=== PATIENT | female | born 1940 | race Caucasian/White ===

== ENCOUNTER → 2017-01-17 16:24 | Outpatient (CLI) | payer MEDICARE | END | disposition home or self-care (01) | LOC: D.MAMMO 13:15 | DX: Z12.31 Encounter for screening mammogram for malignant neoplasm of breast (principal) ==

== ENCOUNTER → 2017-07-09 11:42 | Outpatient (CLI) | payer MEDICARE | END | disposition home or self-care (01) | LOC: D.CT 11:30 | DX: K76.89 Other specified diseases of liver (principal) ==

== ENCOUNTER → 2018-02-01 22:00 | Outpatient (CLI) | payer MEDICARE | END | disposition home or self-care (01) | LOC: D.MAMMO 15:45 | DX: Z12.31 Encounter for screening mammogram for malignant neoplasm of breast (principal) ==

== ENCOUNTER → 2018-05-07 12:27 | Outpatient (CLI) | payer MEDICARE | END | disposition home or self-care (01) | LOC: D.MRI 12:27 | DX: M79.604 Pain in right leg (principal) ==

== ENCOUNTER 2018-09-06 06:20 | Day surgery (SDC) | payer MEDICARE ==
[2018-09-05 11:37] LABS: HEMATOCRIT 37.1 % (36.0-48.0); HEMOGLOBIN 12.4 g/dL (12-16); MCH 30.5 pg (26.0-34.0); MCHC 33.4 g/dL (31.0-37.0); MCV 91.4 fL (80.0-100.0); MEAN PLATELET VOLUME 11.2 fL (7.4-10.4); RBC 4.06 10x6/uL (4.00-5.40); RDW 13.5 % (11.5-14.5); WBC 4.4 10x3/uL (4.8-10.8)
[~2018-09-06] VITALS: Ht 152.4 cm; Wt 54.4 kg
--- NOTE | ~2018-09-06 | OP ---
PATIENT NAME: MICHELL DONOVAN MEDICAL RECORD: [id number] :38 LOCATION:[facility] ADMISSION DATE: SURGEON: DEVYN GROSSMAN DO DATE OF OPERATION: 09/06/2018 PROCEDURE PERFORMED: Left middle finger trigger finger release. PREOPERATIVE DIAGNOSIS: Left middle finger trigger finger. POSTOPERATIVE DIAGNOSIS: Left middle finger trigger finger. INDICATIONS: Ms. Donovan is a 78-year-old female, who presented to my office a month ago complaining of triggering of her left middle finger. She did not have any problem until she hit her forearm and then her finger started triggering. She tried boston taping it to keep it extended without catching. We tried an injection, which did not help she said and I told her that if the injection did not help, we could try another one or release it. She wanted to have it released. She is tired of dealing with the pain and having to boston tape it to the next finger. She did have some palm swelling as well. I informed her of the risks and benefits including damage to the nerves and vessels that were in the area. She was a high risk due to her EKG and she is following up with Dr. Mahoney, roads and parking lots sweeper operator and she was done under local. SURGEON: Devyn Grossman DO DESCRIPTION OF PROCEDURE: I gave her a block with 0.5% Marcaine with epinephrine in the preoperative area over the middle finger flexor tendon sheath and then she was taken to the operative suite, laid in supine position, given some fentanyl by anesthesia. She was given a gram of vancomycin due to her cephalosporin allergy and a time-out was performed. Everyone was in agreement with correct side, site, patient and procedure. The left hand was then prepped and draped in sterile fashion. I did a pinch test and she did feel some and more local was placed, approximately 5 mL, around the surgical site just around the middle finger flexor tendon and then the surrounding skin. She tolerated this well. Once this was set up, an incision was made over the flexor crease the distal one with a 15 blade scalpel, and then Ragnells were used to bluntly dissect down to the flexor tendon itself. The flexor tendon was encountered and was quite inflamed, had some synovitis. The A1 rafia was then encountered and identified. A bipolar was used to coagulate any bleeding at that time. There was very minimal bleeding. Once the A1 rafia was identified, a pickup and scissors were used to release it and then a freer was used to ensure it had good release. The Ragnell was then used to pull the flexor tendons through the incision ensuring that they glided smoothly and did not catch and this was indeed the case, they did not catch. I had the patient while she was awake move the hand herself and flex the middle finger and asked her if she felt any catching. I know that she would be somewhat clouded due to the numbing effect of the local, but she cycled her hand between flexion and extension very smoothly and there was no catching seen of the middle finger noted by myself. The site was then thoroughly irrigated with normal saline and then closed with 4-0 nylon in a horizontal mattress fashion. Adaptic, 4 x 4, Kerlix, and Coban were lightly wrapped around the hand. The patient was awakened and taken to her room in stable condition. BLOOD LOSS: Minimal. OPERATIVE REPORT [id number] MICHELL DONOVAN COMPLICATIONS: None. TRANSINT:[id number] Voice Confirmation ID: [id number] DOCUMENT ID: [id number] DEVYN GROSSMAN DO at 1119 CC: [id number] DICTATION DATE: 09/06/18 09 TUNNEL HEADING INSPECTOR: 09/06/18 1100 [facility] 09/06/18 [facility] [address] [place] [address]
[~2018-09-06 06:20] MED LIST: FLUTICASONE PRO16 GM NASAL; PRED FORTE5 ML RIGHT EYE; VITAMIN B-625 MG PO; VITAMIN D31000 UNIT PO
[2018-09-06 06:46] VITALS: BP 133/67; Ht 152.4 cm; Wt 54.4 kg
[2018-09-06] MEDS ORDERED: TYLENOL W/CODEI1 TAB PO (09:04)
== END 2018-09-06 09:50 | disposition home or self-care (01) ==
LOC: D.OPS 06:20 → D.PAN 09:30 → D.OPS 09:30 → D.PAN 10:05 → D.OPS 11:55 → D.PAN 11:55
PROVIDERS: Anesthesiology
DX: M65.332 Trigger finger, left middle finger (principal); Z01.812 Encounter for preprocedural laboratory examination

== ENCOUNTER → 2018-10-08 08:15 | Outpatient (CLI) | payer MEDICARE ==
[2018-09-06 06:46] VITALS: BMI 23.4
[~2018-10-08 08:15] MED LIST changes: +ASPIRIN81 MG PO; +PLAVIX75 MG PO; +TYLENOL W/CODEI1 TAB PO
== END | disposition home or self-care (01) ==
LOC: D.CT 08:15
DX: R93.89 Abnormal findings on diagnostic imaging of other specified body structures (principal)

== ENCOUNTER 2018-10-17 10:00 | Outpatient (CLI) | payer MEDICARE ==
[~2018-10-17] VITALS: Ht 152.4 cm; Wt 57.3 kg
--- NOTE | ~2018-10-17 | HEMODYNAMI ---
PATIENT:MICHELL DONOVAN MEDICAL RECORD: [id number] : 38 LOCATION:D.CAT ADMISSION DATE: 10/17/18 Generatedon:10/17/201812:42 Patient name: MICHELL DONOVAN Patient #: [id number] SSN: : 1940 Date of study: 10/17/2018 Page: Of Hemodynamic Procedure Report Patient Data Patient Demographics Procedure consent was obtained First Name: MICHELL Gender: Female Last Name: ZION : 1940 Middle Initial: F Age: 78 year(s) Patient #: [id number] Race: Unknown Additional ID: [id number] Contact details [address]: [address] [place] [address] State: [place] City: [place] Zip code: [address] Past Medical History Allergies Allergen Reaction Date Comments Reported Other allergy 10/17/2018 , KEFLEX, LATEX, SULFA Admission Admission Data Admission Date: 10/17/2018 Admission Time: 10:00 Height (in.): 60 BSA: 1.54 (m2) Height (cm.): 152.4 BMI: 24.8 (kg/m2) Weight (lbs.): 127 Weight (kg.): 57.61 Procedure Procedure Types Cath Procedure Diagnostic Procedure [facility] w/Coronaries FFR/IVUS Intra-Coronary IVUS Initial PCI Procedure Coronary Stent Coronary Stent Initial Procedure Description Procedure Date Procedure Date: 10/17/2018 Procedure Start Time: 12:16 Procedure End Time: 12:35 Procedure Staff Name Function Rodney Mahoney MD Performing Physician Ed Correa RT Monitor Seema Hyatt RT Scrub Mae Dutton RN Nurse Jamarcus Coleman RT Compensation Director Procedure Data Cath Procedure Fluoroscopy Diagnostic fluoroscopy Total fluoroscopy Time: 4.2 time: 4.2 min min Diagnostic fluoroscopy Total fluoroscopy dose: 375 dose: 375 mGy mGy Contrast Material Contrast Material Type Amount (ml) Isovue 300 58 Entry Location Entry Primary Successful Side Size Upsize Upsize Entry Closure Jarrett ccessful Closure Location (Fr) 1 (Fr) 2 (Fr) Remarks Device Remarks Radial Right 6 Fr Mechanical artery Short Compression Femoral Right 6 Fr Exoseal artery Short Diagnostic catheters Device Type Used For End Catheter Placement DIAGNOSTIC [place] 110cm 5 Left Coronary Fr catheter ([id number]) Angiography Procedure Complications No complications Procedure Medications Medication Administration Route Dosage 0.9% NaCl I.V. 100 ml/hr Oxygen etCO2 Nasal cannula 2 l/min Lidocaine 2% added to field 20 Heparin Flush Bag added to field 2 bags (1000units/500ml NS) Radial Cocktail added to field 1 syringe (Verapomil 2mg/Nitro 400mcg/Heparin 1500units) Versed I.V. 2 mg Fentanyl I.V. 50 mcg Heparin Bolus I.V. 4000 units Integrilin (Bolus I.V. 5 ml 2mg/ml) Versed I.V. 1 mg Fentanyl I.V. 25 mcg Plavix P.O. 600 mg Hemodynamics Rest BSA: 1.54 (m2) O2 Consumption: Estimated: 138.75 (ml/min) O2 Consumption indexed : Estimated:90.1 (ml/min/m) Heart Rate: 70 (bpm) Snapshots Pre Cath Intra NCS Post Cath Vital Signs Time Heart Resp SPO2 etCO2 NIBP (mmHg) Rhythm Pain Sedation Rate (ipm) (%) (mmHg) Status Level (bpm) 11:59:11 67 13 100 27 151/99(108) NSR 0 (11) 10(A) , No pain 12:03:29 64 14 100 24.5 147/74(113) NSR 0 (11) 10(A) , No pain 12:07:52 69 22 98 31.5 135/71(104) NSR 0 (11) 10(A) , No pain 12:12:10 67 12 98 29.3 120/65(90) NSR 0 (11) 10(A) , No pain 12:16:20 77 15 98 32.3 129/73(106) NSR 0 (11) 9(A) , No pain 12:20:34 88 16 96 33 108/72(87) NSR 0 (11) 9(A) , No pain 12:24:41 91 15 97 30 117/70(90) NSR 0 (11) 10(A) , No pain 12:25:51 91 15 98 30.8 105/65(90) NSR 0 (11) 10(A) , No pain 12:29:22 80 25 97 33 115/65(89) NSR 0 (11) 9(A) , No pain 12:33:32 82 12 96 34 114/68(86) NSR 0 (11) 10(A) , No pain Medications Time Medication Route Dose Verified Delivered Reason Not es Effectiveness by by 12:00:01 0.9% NaCl I.V. 100 Rodney Mae used for ml/hr Denzel Dutton account liaison hospice 12:00:08 Oxygen etCO2 2 l/min Rodney Mae used for Nasal Denzel Dutton procedure cannula RN 12:00:11 Lidocaine 2% added 20ml Rodney Rodney for local to vial Denzel Mahoney MD anesthetic field 12:00:17 Heparin Flush added 2 bags Rodney Rodney used for Bag to Denzel Mahoney MD procedure (1000units/500ml field NS) 12:00:28 Radial Cocktail added 1 Rodney Rodney used for (Verapomil to syringe Denzel Mahoney MD procedure 2mg/Nitro field 400mcg/Heparin 1500units) 12:15:42 Versed I.V. 2 mg Rodney Mae for sedation Denzel Dutton RN 12:15:48 Fentanyl I.V. 50 mcg Rodney Mae for sedation Denzel Dutton RN 12:20:01 Heparin Bolus I.V. 4000 Rodney Mae for haris ified units Denzel Dutton anticoagulation with Dr. CHANELLE Mahoney 12:23:24 Integrilin I.V. 5 ml Rodney Mae for was john (Bolus 2mg/ml) Denzel Dutton anticoagulation 5mL RN 12:25:55 Versed I.V. 1 mg Rodney Mae for sedation Denzel Dutton RN 12:26:02 Fentanyl I.V. 25 mcg Rodney Mae for sedation Denzel Dutton RN 12:35:12 Plavix P.O. 600 mg Rodney Mae for Denzel Dutton antiplatelet RN therapy Procedure Log Time Note 11:40:12 Jamarcus Coleman RT(R) sent for patient. Start room use. 11:47:03 Signed procedure consent form obtained from patient. 11:47:04 Diagnostic Cath status Elective 11:47:06 Time tracking: Regular hours (M-F 7:00 - 5:00) 11:47:09 Plan of Care:Hemodynamics will remain stable., Cardiac rhythm will remain stable., Comfort level will be maintained., Respiratory function will remain adequate., Patient/ family verbilizes understanding of procedure., Procedure tolerated without complication., Recovers from procedure without complications.. 11:47:40 H&P Date Dictated: 10/10/2018 Within 30 days and on chart., H&P Addendum completed by physician on day of procedure. (MUST COMPLETE FOR ALL OUTPATIENTS). 11:48:00 Patient allergic to Other allergyDONNATAL, KEFLEX, LATEX, SULFA 11:48:16 Patient Height : 60 inches 11:48:20 Patient Weight : 127 lbs 11:48:26 Patient received from Pre/Post Procedure Room to CCL 1 Alert and oriented. Tansferred to table in Supine position. 11:48:27 Warm blankets applied, and mary hugger turned on for patient comfort. 11:48:28 Correct patient and procedure confirmed by team. 11:48:28 ECG and BP/O2 sat monitors applied to patient. 11:58:10 Vital chart was started 11:58:14 Baseline sample Acquired. 11:58:20 Rhythm: sinus rhythm 11:58:22 Full Disclosure recording started 11:58:23 Pre-procedure instructions explained to patient. 11:58:23 Pre-op teaching completed and patient verbalized understanding. 11:58:27 Family in waiting room. 11:58:29 Patient NPO since Midnight. 11:58:31 Is the patient allergic to Iodine/contrast media? No. 11:58:34 Is patient on blood thinner?No 11:58:35 Patient diabetic? No. 11:58:38 Previous problem with sedation/anesthesia? No ? 11:58:40 Snore? Yes 11:58:41 Sleep apnea? No 11:58:42 Deviated septum? No 11:58:43 Opens mouth fully? Yes 11:58:44 Sticks out tongue? Yes 11:58:55 Airway obstruction? No ? 11:59:02 Dentures? Yes IN 11:59:06 Pre procedure: right dorsailis pedis pulse 1+ Palpable, but thready & weak; easily obliterated 11:59:08 Modified Elkin's test Ulnar < 7 seconds 11:59:10 Patient pain scale 0/10 ?. 11:59:16 IV patent on arrival in left hand with 0.9% NaCl at [facility]. 11:59:22 Lab results completed and on chart. 11:59:27 Right Radial & Right Groin area was prepped with chlora-prep and draped in sterile fashion 11:59:29 Alarms reviewed by R. N. 11:59:29 Sharps counted by scrub and verified by R.N. 12:00:01 0.9% NaCl 100 ml/hr I.V. was administered by Mae Dutton RN; used for procedure; 12:00:08 Oxygen 2 l/min etCO2 Nasal cannula was administered by Mae Dutton RN; used for procedure; 12:00:11 Lidocaine 2% 20ml vial added to field was administered by Rodney Mahoney MD; for local anesthetic; 12:00:17 Heparin Flush Bag (1000units/500ml NS) 2 bags added to field was administered by Rodney Mahoney MD; used for procedure; 12:00:28 Radial Cocktail (Verapomil 2mg/Nitro 400mcg/Heparin 1500units) 1 syringe added to field was administered by Rodney Mahoney MD; used for procedure; 12:07:50 Physician paged 12:10:43 Zero performed for pressure channel P1 12:13:26 Physician arrived 12:: --------ALL STOP TIME OUT------ 12::27 Final Timeout: patient, procedure, and site verified with staff and physician. All members of the team are in agreement. 12:13:29 Right Radial & Right Groin site verified by team. 12:13:34 Physical assessment completed. ASA score P 2 - A patient with mild systemic disease as per Rodney Mahoney MD. 12:13:38 Sedation plan: IV Moderate Sedation Medication:Versed, Fentanyl 12:15:42 Versed 2 mg I.V. was administered by Mae Dutton RN; for sedation; 12:15:48 Fentanyl 50 mcg I.V. was administered by Mae Dutton RN; for sedation; 12:16:08 Procedure started. 12:16:17 Local anesthetic to right radial artery with Lidocaine 2% by Rodney Mahoney MD.INITIAL ACCESS ONLY 12:16:24 A 6 Fr Short sheath was inserted into the Right Radial artery 12:16:51 Use device set Radial Dx or PCI 12:16:54 ACIST Syringe (23877) opened to sterile field. 12:16:55 Medline Cath Pack ([id number]) opened to sterile field. 12:16:55 Bag Decanter (2002) opened to sterile field. 12:16:56 DIAGNOSTIC WIRE .035 260cm J wire (931497) opened to sterile field. 12:16:56 ACIST Hand Control (52970) opened to sterile field. 12:16:57 ACIST Manifold (53863) opened to sterile field. 12:16:57 Tegaderm 4 x 4 (1626W) opened to sterile field. 12:16:58 MBrace Wrist Support ([id number]) opened to sterile field. 12:17:02 TR BAND Standard ([id number]) opened to sterile field. 12:17:05 SHEATH 6FR Slender (80-2183) opened to sterile field. 12:17:10 A DIAGNOSTIC [place] 110cm 5 Fr catheter (150056) was advanced over the wire and used for Left Coronary Angiography. 12:17:20 LV angiography performed. 12:17:24 LV gram done using RAE 12:17:41 EF : 55 % 12:17:47 RCA angiography performed. 12:18:09 LCA angiography performed. 12:19:39 Catheter removed. 12:20:01 Heparin Bolus 4000 units I.V. was administered by Mae Dutton RN; for anticoagulation; verified with Dr. Mahoney 12:20:20 CHOICE PT Extra Support 182cm wire ([id number]) opened to sterile field. 12:20:20 INFLATOR [place]it BasixCompak (PO1538) opened to sterile field. 12:20:24 GUIDE 6FR AR 2.0 catheter ([id number]) opened to sterile field. 12:20:32 [place] IVUS Catheter (00942S) opened to sterile field. 12:22:43 SHEATH 6FR [place] (OVS689) opened to sterile field. 12:23:13 Local anesthetic to right femoral artery with Lidocaine 2% by Rodney Mahoney MD.ADDITIONAL ACCESS 12:23:21 A 6 Fr Short sheath was inserted into the Right Femoral artery 12:23:24 Integrilin (Bolus 2mg/ml) 5 ml I.V. was administered by Mae Dutton RN; for anticoagulation; wasted 5mL 12:24:15 6 Fr AR 2 guide catheter was inserted over the wire 12:: Guide catheter removed. 12::33 6 Fr AR 2 SH guide catheter was inserted over the wire 12:: Versed 1 mg I.V. was administered by Mae Dutton RN; for sedation; 12:: Fentanyl 25 mcg I.V. was administered by Mae Dutton RN; for sedation; 12::05 CPTES wire advanced. 12::50 FFR/IVUS 12::57 IVUS catheter advanced over wire. 12::59 IVUS pass to RCA lesion performed. 12::36 IVUS catheter removed over wire. 12::27 Place stent Inflation Number: 1 A INTEGRITY 4.0 x 18 stent ([id number]) was prepped and advanced across the Mid RCA. The stent was deployed at 13 WAQAS for 0:11 (min:sec). 12::59 Stent catheter was removed intact over wire. 12:31:00 Wire removed. 12:31:00 Guide catheter removed. 12::06 Contrast amount:Isovue 300 58ml. 12:31:12 Sheath removed intact; hemostasis achieved with Exoseal to the Right Femoral artery. 12:31:18 EXOSEAL 6Fr (EX600) opened to sterile field. 12:31:22 Procedure ended.(Physican Out) 12:32:51 Fluoroscopy time 04.20 minutes. ::55 Fluoroscopy dose: 375 mGy 12::55 Flurop Dose total: 375 12:32:57 Sharps counted by scrub and verified by R.N. 12:33:04 Sheath removed intact; hemostasis achieved with Mechanical Compression to the Right Radial artery. 12:33:41 GUIDE 6FR AR 2.0 SH catheter ([id number]) opened to sterile field. 12:33:51 TR band inflated with 10cc of air. 12:33:52 Insertion/operative site no bleeding no hematoma. 12:33:54 Post-op/insertion site Right Femoral artery dressed using a 4 x 4 and Tegaderm. 12:33:57 Post right femoral artery:stable 12:34:02 Post right radial artery:stable 12:34:03 Post Procedure Pulses reassessed and unchanged 12:34:07 Post procedure: right dorsailis pedis pulse 2+ Normal; easily identifiable; not easily obliterated. 12:34:14 Post procedure rhythm: sinus rhythm 12:34:16 Post procedure instruction explained to patient.Patient verbalizes understanding. 12:34:48 Procedure and supply charges have been captured, reviewed, submitted and are correct. 12:35:11 Procedure type changed to Cath procedure, Diagnostic procedure, LHC, LHC w/Coronaries, FFR/IVUS, Intra-Coronary IVUS Initial, PCI procedure, Coronary Stent, Coronary Stent Initial 12:35:12 Plavix 600 mg P.O. was administered by Mae Dutton RN; for antiplatelet therapy; 12:35:17 Procedure Complication : No complications 12:35:19 Vital chart was stopped 12:35:34 See physician's report for complete and final results. 12:35:36 Report given to Pre/Post Procedure Room. 12:35:40 Patient transfered to Pre/Post Procedure Room with Stretcher. 12:35:42 Procedure ended. 12:35:42 Full Disclosure recording stopped 12:35:45 End room use (Document Last) Intervention Summary Intervention Notes Time ActionType Lesion and Equipment Action# Pressure Duration Attributes Used 12:30:27 Place stent Mid RCA INTEGRITY 1 13 00:11 4.0 x 18 stent ([id number]) Device Usage Item Name Manufacture Quantity Catalog Number Hospital Part Current Mini [facility] Lot# / Charge Number Stock Stock Serial# Code ACIST Acist 1 12291 482875 884407 555694 20 Syringe Medical (29444) Systems Inc Medline Cath Medline 1 [id number] 641600 94881 556153 5 Pack ([id number]) Bag Decanter Microtek 1 2001S 172890 38364 000498 5 () Medical Inc. DIAGNOSTIC St [place] 1 038757 757494 084874 847484 30 WIRE .035 260cm J wire (439543) ACIST Hand Acist 1 71697 773918 384606 199845 5 Control Medical (07383) Systems Inc ACIST Acist 1 20941 613078 977043 477417 5 Manifold Medical (60490) Systems Inc Tegaderm 4 x 3M 1 1626W 004683 876271 041750 5 4 (1626W) MBrace Wrist Advanced 1 140-0250-00 875103 22218 113514 5 Support Vascular ([id number]) Dynamics TR BAND Terumo 1 [id number] 701124 582381 862125 40 Standard ([id number]) SHEATH 6FR Terumo 1 [id number] 677345 743992 415731 5 Slender (80-1060) DIAGNOSTIC Terumo 1 40-5013 041845 560967 921266 5 [place] 110cm 5 Fr catheter (866565) CHOICE PT [place] 1 [id number] 437293 187330 969936 5 Extra Scientific Support 182cm wire ([id number]) INFLATOR Merit 1 NW5358 366453 457329 209888 15 [facility] Medical BasixCompak (ZR4077) GUIDE 6FR AR Medtronic 1 [id number] 508134 73677 838446 1 2.0 catheter ([id number]) [place] 1 61387V 586505 582878 481304 8 [place] IVUS Catheter (00074Y) SHEATH 6FR Terumo 1 PWE093 839079 740566 363354 40 [place] (DEZ513) INTEGRITY Medtronic 1 [id number] 002347 863419 872076 5 [id number] 4.0 x 18 stent ([id number]) EXOSEAL 6Fr Cardinal 1 EX600 483147 348339 054461 10 (EX600) Health GUIDE 6FR AR Medtronic 1 [id number] 167541 14642 659628 1 2.0 SH catheter ([id number]) Signature Audit [place] Stage Time Signature Unsigned Intra-Procedure 10/17/2018 Ed Correa RT(R) 12:42:11 PM Signatures Monitor : Ed Correa RT Signature : Date : Time : [facility] [address] [place] [address]
[~2018-10-17 10:00] MED LIST changes: -ASPIRIN81 MG PO; -PLAVIX75 MG PO
[2018-10-17 10:40] VITALS: BP 136/78; Ht 152.4 cm; Wt 57.3 kg
[2018-10-17 10:59] LABS: ANION GAP 15.4 mmol/L (8-16); CALCIUM 9.4 mg/dL (8.5-10.1); CARBON DIOXIDE 25.8 mmol/L (21.0-32.0); CREATININE - SERUM 1.1 mg/dL (0.6-1.3); POTASSIUM - SERUM 4.2 mmol/L (3.5-5.1)
[2018-10-17 11:09] LABS: BASOPHILS 1.1 % (0-2); EOSINOPHILS 4.5 % (0-7); HEMATOCRIT 39.5 % (36.0-48.0); HEMOGLOBIN 13.4 g/dL (12-16); IMMATURE GRANULOCYTES 0.3 % (0-5); MCH 30.5 pg (26.0-34.0); MCHC 33.9 g/dL (31.0-37.0); MEAN PLATELET VOLUME 11.1 fL (7.4-10.4); MONOCYTES 9.8 % (2-11); NEUTROPHILS 50.3 % (40-80); PLATELET COUNT 164 10x3/uL (130-400); RBC 4.39 10x6/uL (4.00-5.40); RDW 13.4 % (11.5-14.5); WBC 3.8 10x3/uL (4.8-10.8)
--- NOTE | 2018-10-17 12:45 | NUR ---
PT RECEIVED BACK TO ROOM VIA STRETCHER FROM INFORMATICS SPECIALIST FOR RECOVERY. PT SLEEPING BUT AROUSES TO VERBAL STIMULI. TR BAND TO R WRIST IN PLACE, DRESSING CDI NO BLEEDING OR SWELLING NOTED. 6FR EXOCELE TO R GROIN, DRESSING CDI. FEM STOP IN PLACE PER INFORMATICS SPECIALIST STAFF, PRESSURE AT 181. HR TACHY AT 102, BP 130/75, O2 SAT 99 ON 1L/NC. PT INSTRUCTED TO KEEP HEAD ON PILLOW AND R LEG STRAIGHT, VERBALIZED UNDERSTANDING. CALL LIGHT IN REACH AND FAMILY AT BS.
[2018-10-17] MEDS ORDERED: PLAVIX75 MG PO (12:47)
[2018-10-17] MEDS ORDERED: ASPIRIN81 MG PO (12:47)
--- NOTE | 2018-10-17 13:00 | NUR ---
PT C/O OF HEARTBURN AND NAUSEA, VOMITS MOD AMOUNT, VAGEL RESPONSE BP 88/51, OPENED FLUIDS UP AND PUT PT HOB DOWN. FEM STOP PRESSURE REDUCED TO 100, NO HEMATOMA OR SWELLING NOTED. PT REPOSITIONED FOR COMFORT. ZOPRAN 4MG GIVEN IVP PER ORDER. CALL LIGHT IN REACH.
--- NOTE | 2018-10-17 13:15 | NUR ---
BP IMPROVED 100/55, C/O R KNEE HURTING PROPED WITH WARM BLANKET APPLIED. HR 65 NSR. CALL LIGHT IN REACH , FAMILY AT BS
--- NOTE | 2018-10-17 13:30 | NUR ---
PT RESTING W EYES CLOSED, FEM STOP ON R GROIN AT 80. NO BLEEDING OR SWELLING NOTED. TR BAND IN PLACE, NO BLEEDING OR SWELLING NOTED.. BP 116/59, PULSE 61 NSR. CALL LIGHT IN REACH.
--- NOTE | 2018-10-17 13:45 | NUR ---
PT STILL RESTING W EYES CLOSED, R GROIN W FEM STOP IN PLACE, NO BLEEDING OR SWELLING NOTED. TR BAND IN PLACE NO BLEEDING OR SWELLING NOTED. DENIES NAUSEA, STILL C/O KNEE PAIN. EXPLAINED THE FEM STOP AND THAT WAS THE POSSIBLE CAUSE PATIENT UNDERSTANDS. PULSE PALPABLE. CALL LIGHT IN REACH
--- NOTE | 2018-10-17 14:00 | NUR ---
PT RESTING QUIETLY, STATES FEELS BETTER, FEM STOP PRESSURE REDUCED TO 40, NO BLEEDING OR HEMATOMA NOTED. TR BAND TO R WRIST REMAINS IN PLACE DRESSING CDI NO BLEEDING OR SWELLING NOTED. HR NSR RATE 60, BP 123/64. CALL LIGHT IN REACH. SIPS OF SPRITE GIVEN PER REQUEST.
--- NOTE | 2018-10-17 14:15 | NUR ---
FEM STOP PRESSURE REDUCED TO 40, NO BLEEDING OR SWELLING NOTED. TR BAND IN PLACE NO BLEEDING OR SWELLING NOTED. PT RESTING MORE COMFORTABLY. DENIES CHEST PAIN OR NAUSEA. FAMILY AT BEDSIDE
--- NOTE | 2018-10-17 14:30 | NUR ---
PT RESTING QUIETLY, STATES KNEE PAIN BETTER. DENIES CHEST PAIN OR NEEDS. R GROIN FEM STOP IN PLACE NO BLEEDING OR SWELLING NOTED. TR BAND TO R WRIST, DRESSING CDI NO BLEEDING OR HEMATOMA NOTED. CALL LIGHT IN REACH, FAMILY AT BEDSIDE
--- NOTE | 2018-10-17 15:05 | NUR ---
PT RESTING COMFORTABLY, FEM STOP PRESSURE REDUCED TO 30. NO BLEEDING OR HEMATOMA NOTED. TR BAND IN PLACE, NO BLEEDING OR HEMATOMA NOTED. HR NSR RATE 61, BP 114/62. O2 SAT 100 ON 2L/NC. CALL LIGHT IN REACH AND FAMILY AT BS.
--- NOTE | 2018-10-17 15:34 | NUR ---
REMAINING PRESSURE FROM FEM STOP REMOVED. HOB ELEVATED SLIGHTLY. NO BLEEDING OR SWELLING NOTED FROM R GROIN OR TR BAND. PT DENIES PAIN OR NAUSEA. VSS.
--- NOTE | 2018-10-17 15:50 | NUR ---
5CC AIR REMOVED FROM TR BAND, NO BLEEDING OR SWELLING NOTED.
--- NOTE | 2018-10-17 16:15 | NUR ---
DISCHARGE TEACHING COMPLETED WITH PT AND SON, PT C/O OF PAIN AT ELBO IN R ARM, SWELLING NOTED SORE TO THE TOUCH. VASC BAND PLACED W 15 CC AIR AT ELBOW PER RT KATHY. PT TOLERATED PROCEDURE WELL, WILL CONTINUE TO MONITOR.
--- NOTE | 2018-10-17 17:04 | NUR ---
HYDROCODONE 5MG GIVEN PO FOR PAIN PER PILLO CANTRELL RN. PT REPOSITIONED FOR COMFORT. CALL LIGHT IN REACH AND FAMILY AT BEDSID
--- NOTE | 2018-10-17 17:28 | NUR ---
PT RESTING QUIETLY, STATES PAIN IS BETTER IN ARM. AREA BELOW ELBOW IS STILL SWOLLEN, THE VASC BAND REMAINS IN PLACE WITH 15CC AIR. HR NSR RATE 78 BP 114/61. CALL LIGHT IN REACH.
--- NOTE | 2018-10-17 17:59 | NUR ---
PT PLACED ON BEDPAN, VOIDED LG AMOUNT OF CLEAR YELLOW URINE. VASC BAND REMAINS IN PLACE ON UPPER ARM. SWOLLEN AREA REMAINS THE SAME. TR BAND IN PLACE. NO BLEEDING OR HEMATOMA NOTED. HR 79, BP 122/53.
--- NOTE | 2018-10-17 18:15 | EC ---
PATIENT:MICHELL DONOVAN DATE OF SERVICE: 10/17/18 SEX: F MEDICAL RECORD: [id number] DATE OF : 38 LOCATION:[facility] AGE OF PATIENT: 78 ADMISSION DATE: 10/17/18 REFERRING PHYSICIAN: INTERPRETING PHYSICIAN: AIDEE MAHONEY MD ECHOCARDIOGRAM REPORT ECHO CHARGES 4 ECHO COMPLETE Date: 10/17/18 CLINICAL DIAGNOSIS: ASSESS EF/VALVES/MURMURS ECHOCARDIOGRAPHIC MEASUREMENTS (adult normal given) AC root (d.<3.7cm) 2.9 cm LV Septum d (<1.2 cm> 1.2 cm Valve Excursion 1.2 cm LV Septum (systole) 1.3 cm Left Atria (s.<4.0cm> 3.0 cm LVPW d(<1.2cm) 1.3 cm RV (d.<2.3cm) 3.5 cm LVPW (sytole) 1.5 cm LV diastole(<5.6CM) 4.2 cm MV E-F(>70mm/sec) cm LV systole 3.3 cm LVOT Diameter 1.3 cm MV exc.(>10mm) 1.1 cm Est.ejection fraction (50-75%) % DOPPLER: LVIT cm/sec A 98.0 cm/sec E 76.0 cm/sec LA cm/sec RVSP 38 mmHg LVOT 200 cm/sec AOP1/2T m/s Asc. Ao 269 cm/sec RVOT 61 cm/sec RA cm/sec PA 221 cm/sec AV Gradient Peak 29.05mmHg AV Mean 16.28mmHg AV Area 1.2 cm MV Gradient Peak 5.45 mmHg MV Mean 2.18 mmHg MV Area cm COMMENTS: Core Drill Operator Helper: Sade MORRIS Software Integrator: 1 Dr. Mahoney TAPE# PACS Pericardial Effusion N DATE OF SERVICE: 10/17/2018 FINDINGS: 1. Left ventricular chamber size is within normal limits. Left ventricular systolic function is normal. Overall ejection fraction estimated at 55%. 2. Left atrium, right atrium, and right ventricle chamber sizes are within normal limits. 3. Valvular structures: Aortic valve demonstrates mild calcific aortic stenosis, valve area calculates 1.2 cm-squared and has a gradient of 29 mm across the valve. The remaining valvular structures have normal structure and ECHOCARDIOGRAM REPORT [id number] MICHELL DONOVAN motion. 4. Doppler interrogation reveals moderate mitral regurgitation, mild tricuspid regurgitation, no other valvular insufficiency or stenosis. Pulmonary systolic pressure is estimated at 38 mmHg. 5. No evidence of pericardial effusion or left ventricular thrombus. TRANSINT:[id number] Voice Confirmation ID: [id number] DOCUMENT ID: [id number] AIDEE MAHONEY MD at 1815 CC: [id number] DICTATION DATE: 10/17/18 1247 RESEARCH AND DEVELOPMENT ENGINEER: 10/17/18 1336 [facility] [address] [place] [id number]
--- NOTE | 2018-10-17 18:15 | OP ---
PATIENT NAME: MICHELL DONOVAN MEDICAL RECORD: [id number] :38 LOCATION:D.CAT ADMISSION DATE: SURGEON: AIDEE GIRON MD DATE OF OPERATION: 10/17/2018 PROCEDURES: 1. PTCA stent RCA. 2. Intravascular ultrasound. 3. Left heart catheterization. 4. Selective coronary angiography. 5. Left ventriculogram. INDICATION: Angina and coronary artery disease. PROCEDURE IN DETAIL: After informed consent was obtained and after a detailed description of the risks, benefits as well as alternative therapies, the patient elected to proceed with angiogram and angioplasty. The right femoral area was prepped and draped in normal sterile fashion. Right femoral artery was cannulated via modified Seldinger technique with placement of 6-Nigerian sheath. All catheters exchanged through this sheath. FINDINGS: The left ventriculogram was performed in a standard 30-degree RAE view, reveals good cardiac wall motion throughout all segments. Overall ejection fraction estimated at 60%. SELECTIVE CORONARY ANGIOGRAPHY: 1. Left main showed no significant angiographic disease. 2. Left anterior descending has greater than 75% stenosis in the mid vessel. 3. Left circumflex has greater than 75% stenosis in the mid vessel. 4. Right coronary has approximately 70% stenosis in the mid vessel confirmed by intravascular ultrasound. SUPERVISOR PRODUCTION MANAGING STENT OF THE RCA: The stent used was a 4.0 x 18 mm Integrity. Result was 0% residual stenosis. OVERALL IMPRESSION: Successful percutaneous transluminal coronary angioplasty stent of the right coronary artery going from 70% initial stenosis to 0% residual. PLAN: Plan for PTCA stent of the LAD and circumflex in the near future. TRANSINT:[id number] Voice Confirmation ID: [id number] DOCUMENT ID: [id number] AIDEE GIRON MD at 1815 CC: [id number] DICTATION DATE: 10/17/18 1235 CIRCULAR SHEAR OPERATOR: 10/17/18 1301 [facility] [address] [place] [address]
--- NOTE | 2018-10-17 18:18 | NUR ---
AIR REMOVED FROM VASC BAND, SWELLING HAS DECREASED, MARKED SKIN AND WILL MONITOR FOR 20 MIN TO MAKE SURE NO ADDITIONAL SWELLING IS NOTED BEFORE DISCHARGE.
--- NOTE | 2018-10-17 18:40 | NUR ---
SWELLING DECREASED SLIGHTLY IN UPPER ARM. MONITORS REMOVED. IV DC'D W CATH INTACT. PT ASSISTED IN GETTING DRESSED FOR DISCHARGE.
--- NOTE | 2018-10-17 18:50 | NUR ---
TR BAND REMOVED AND DRESSING APPLIED. NO BLEEDING OR HEMATOMA NOTED. PT DISCHARGED VIA WC TO PRIVATE VEHICLE.
== END 2018-10-17 18:45 | disposition home or self-care (01) ==
LOC: D.CATH 10:00 → D.ECHO 10:35 → D.CATH 12:00
PROVIDERS: Internal Medicine Interventional Cardiology
DX: I25.110 Atherosclerotic heart disease of native coronary artery with unstable angina pectoris (principal)

== ENCOUNTER 2018-10-18 08:33 | Emergency (ER) | payer MEDICARE ==
[~2018-10-18] VITALS: Ht 152.4 cm; Wt 57.3 kg
[~2018-10-18 08:33] MED LIST changes: +ASPIRIN81 MG PO; +PLAVIX75 MG PO
[2018-10-18 08:47] VITALS: Ht 152.4 cm; Wt 57.3 kg
[2018-10-18 11:08] VITALS: BP 129/72
== END 2018-10-18 11:09 | disposition home or self-care (01) ==
LOC: D.ER 08:33
DX: S50.11XA Contusion of right forearm, initial encounter (principal); X58.XXXA Exposure to other specified factors, initial encounter; Y93.89 Activity, other specified; Y92.019 Unspecified place in single-family (private) house as the place of occurrence of the external cause; M79.631 Pain in right forearm

== ENCOUNTER 2018-10-23 08:42 | Outpatient (CLI) | payer MEDICARE ==
[~2018-10-23] VITALS: Ht 152.4 cm; Wt 57.3 kg
--- NOTE | ~2018-10-23 | HEMODYNAMI ---
PATIENT:MICHELL DONOVAN MEDICAL RECORD: [id number] : 38 LOCATION:D.CAT ADMISSION DATE: 10/23/18 Generatedon:10/23/201811:00 Patient name: MICHELL DONOVAN Patient #: [id number] SSN: : 1940 Date of study: 10/23/2018 Page: Of Hemodynamic Procedure Report Patient Data Patient Demographics Procedure consent was obtained First Name: MICHELL Gender: Female Last Name: ZION : 1940 Middle Initial: F Age: 78 year(s) Patient #: [id number] Race: Unknown Additional ID: [id number] Contact details [address]: [address] [place] [address] State: [place] City: [place] Zip code: [address] Past Medical History Allergies Allergen Reaction Date Comments Reported Other allergy 10/17/2018 , KEFLEX, LATEX, SULFA Admission Admission Data Admission Date: 10/23/2018 Admission Time: 8:42 Admit Source: Other Height (in.): 60 BSA: 1.53 (m2) Height (cm.): 152.4 BMI: 24.61 (kg/m2) Weight (lbs.): 126 Weight (kg.): 57.15 Lab Results Lab Result Date: 10/23/2018 Lab Result Time: 0:00 Biochemistry Name Units Result Min Max BUN mg/dl 15 --(--*-)-- 7 18 Creatinine mg/dl 1.1 --(--*-)-- 0.6 1.3 Procedure Procedure Types Cath Procedure Diagnostic Procedure FFR/IVUS Intra-Coronary IVUS Initial Intra-Coronary IVUS Additional PCI Procedure Coronary Stent Coronary Stent Initial x2 PTCA PTCA Additional Procedure Description Procedure Date Procedure Date: 10/23/2018 Procedure Start Time: 10:29 Procedure End Time: 10:58 Procedure Staff Name Function Rodney Mahoney MD Performing Physician Jose Bennett RT Scrub Mae Dutton RN Nurse Albert Melgoza RN Software Security Architect Nash Clayton RT Monitor Procedure Data Cath Procedure Fluoroscopy Diagnostic fluoroscopy Total fluoroscopy Time: 6.4 time: 6.4 min min Diagnostic fluoroscopy Total fluoroscopy dose: 429 dose: 429 mGy mGy Contrast Material Contrast Material Type Amount (ml) Isovue 300 120 Entry Location Entry Primary Successful Side Size Upsize Upsize Entry Closure Succes sful Closure Location (Fr) 1 (Fr) 2 (Fr) Remarks Device Remarks Femoral Left 6 Fr Exoseal artery Short Estimated blood loss: 10 ml Procedure Medications Medication Administration Route Dosage 0.9% NaCl I.V. 100 ml/hr Oxygen etCO2 Nasal cannula 2 l/min Lidocaine 2% added to field 20 Heparin Flush Bag added to field 2 bags (1000units/500ml NS) Versed I.V. 2 mg Fentanyl I.V. 50 mcg Heparin Bolus I.V. 4000 units Versed I.V. 1 mg Hemodynamics Rest BSA: 1.53 (m2) O2 Consumption: Estimated: 135.22 (ml/min) O2 Consumption indexed : Estimated:88.38 (ml/min/m) Heart Rate: 65 (bpm) Snapshots Pre Cath Intra NCS Post Cath Vital Signs Time Heart Resp SPO2 etCO2 NIBP (mmHg) Rhythm Pain Sedation Rate (ipm) (%) (mmHg) Status Level (bpm) 10:17:40 68 15 100 29.5 171/82(137) NSR 0 (11) 10(A) , No pain 10:22:04 70 10 98 30 134/59(102) NSR 0 (11) 10(A) , No pain 10:26:22 72 11 100 31.6 121/59(100) NSR 0 (11) 10(A) , No pain 10:31:27 74 13 99 28.7 126/62(92) NSR 0 (11) 10(A) , No pain 10:35:39 80 12 99 25.7 117/61(92) NSR 0 (11) 9(A) , No pain 10:39:51 80 13 100 26.4 119/70(98) NSR 0 (11) 9(A) , No pain 10:44:03 78 13 100 26.6 135/68(102) NSR 0 (11) 9(A) , No pain 10:48:56 78 14 99 29.7 151/74(106) NSR 0 (11) 9(A) , No pain 10:53:14 74 15 100 28.8 140/77(114) NSR 0 (11) 10(A) , No pain 10:58:13 71 15 100 14.4 Measuring NSR 0 (11) 10(A) , No pain 10:58:23 74 14 100 13.6 155/84(138) NSR 0 (11) 10(A) , No pain Medications Time Medication Route Dose Verified Delivered Reason Notes Effectiveness by by 10:15:48 0.9% NaCl I.V. 100 Rodney Mae used for ml/hr Denzel Dutton music assistant 10:15:54 Oxygen etCO2 2 Rodney Mae used for Nasal l/min Denzel Dutton procedure cannula RN 10:16:01 Lidocaine 2% added 20ml Rodney Rodney for local to vial Denzel Mahoney MD anesthetic field 10:16:06 Heparin Flush added 2 Rodney Rodney used for Bag to bags Denzel Mahoney MD procedure (1000units/500ml field NS) 10:29:35 Versed I.V. 2 mg Rodney Mae for sedation Denzel Dutton RN 10:29:40 Fentanyl I.V. 50 Rodney Mae for sedation mcg Denzel Dutton RN 10:29:42 Heparin Bolus I.V. 4000 Rodney Mae for verif ied units Denzel Dutton anticoagulation with Dr. CHANELLE Mahoney 10:34:01 Versed I.V. 1 mg Rodney Mae for sedation Denzel Dutton shower screen installer Log Time Note 9:54:23 Informed consent obtained and on chart 9:54:26 Admit Source: Other 9:54:49 Diagnostic Cath status Elective 9:54:50 Time tracking: Regular hours (M-F 7:00 - 5:00) 9:54:55 Plan of Care:Hemodynamics will remain stable., Cardiac rhythm will remain stable., Comfort level will be maintained., Respiratory function will remain adequate., Patient/ family verbilizes understanding of procedure., Procedure tolerated without complication., Recovers from procedure without complications.. 9:55:00 H&P Date Dictated: 10/23/2018 New H&P dictated by physician.. 10:04:07 Albert Melgoza RN sent for patient. Start room use. 10:12:00 Patient received from Pre/Post Procedure Room to CCL 1 Alert and oriented. Tansferred to table in Supine position. 10:12:19 Warm blankets applied, and mary hugger turned on for patient comfort. 10:12:20 Correct patient and procedure confirmed by team. 10:15:35 Vital chart was started 10:15:48 0.9% NaCl 100 ml/hr I.V. was administered by Mae Dutton RN; used for procedure; 10:15:54 Oxygen 2 l/min etCO2 Nasal cannula was administered by Mae Dutton RN; used for procedure; 10:16:01 Lidocaine 2% 20ml vial added to field was administered by Rodney Mahoney MD; for local anesthetic; 10:16:06 Heparin Flush Bag (1000units/500ml NS) 2 bags added to field was administered by Rodney Mahoney MD; used for procedure; 10:19:10 Rhythm: sinus rhythm 10:19:12 Baseline sample Acquired. 10:19:16 Full Disclosure recording started 10:19:18 Pre-procedure instructions explained to patient. 10:19:19 Pre-op teaching completed and patient verbalized understanding. 10:19:23 Family in patients room. 10:19:30 Patient NPO since Midnight. 10:20:29 ALLERGY: KEFLEX, LATEX, , SULFA 10:20:39 Is the patient allergic to Iodine/contrast media? No. 10:20:51 Is patient on blood thinner?Yes 10:20:54 ACC The patient was administered the following blood thiners within the last 24 hours: ACCPlavix 10:21:52 ----Pre-sedation anethsthesia assessment.---- 10:21:57 Previous problem with sedation/anesthesia? No ? 10:24:06 Pre procedure: left dorsailis pedis pulse 1+ Palpable, but thready & weak; easily obliterated 10:24:11 Patient pain scale 0/10 ?. 10:24:34 IV patent on arrival in left forearm with 0.9% NaCl at [facility]. 10:27:49 Lab Result : BUN 15 mg/dl 10:27:49 Lab Result : Creatinine 1.1 mg/dl 10:27:58 Left groin area was prepped with chlora-prep and draped in sterile fashion 10:28:00 Alarms reviewed by RPriya NPriya 10:28: Sharps counted by scrub and verified by R.N. 10:28:02 Physician arrived 10:28:02 --------ALL STOP TIME OUT------ 10:28:03 Final Timeout: patient, procedure, and site verified with staff and physician. All members of the team are in agreement. 10:28:05 Left groin site verified by team. 10:28:10 Physical assessment completed. ASA score P 2 - A patient with mild systemic disease as per Rodney Mahoney MD. 10:28:15 Sedation plan: IV Moderate Sedation Medication:Versed, Fentanyl 10:28:22 Use device set Femoral Dx 10:28:24 ACIST Syringe (81673) opened to sterile field. 10:28:25 Bag Decanter (2002S) opened to sterile field. 10:28:27 Medline Cath Pack ([id number]) opened to sterile field. 10:28:28 DIAGNOSTIC WIRE .035 260cm J wire (076505) opened to sterile field. 10:28:29 ACIST Hand Control (83068) opened to sterile field. 10:28:30 ACIST Manifold (08562) opened to sterile field. 10:28:32 Tegaderm 4 x 4 (1626W) opened to sterile field. 10:29:02 CHOICE PT Extra Support 182cm wire ([id number]) opened to sterile field. 10:29:03 INFLATOR Merit BasixCompak (MR4432) opened to sterile field. 10:29:12 GUIDE 6FR XBLAD 3.5 catheter ([id number]) opened to sterile field. 10:29:21 SHEATH 6FR [place] (XDR105) opened to sterile field. 10:29:29 Procedure started. 10:29:35 Versed 2 mg I.V. was administered by Mae Dutton RN; for sedation; 10:29:37 Local anesthetic to left femerol artery with Lidocaine 2% by Rodney Mahoney MD.INITIAL ACCESS ONLY 10:29:40 Fentanyl 50 mcg I.V. was administered by Mae Dutton RN; for sedation; 10:29:42 Heparin Bolus 4000 units I.V. was administered by Mae Dutton RN; for anticoagulation; verified with Dr. Mahoney 10:30:01 A 6 Fr Short sheath was inserted into the Left Femoral artery 10:30:13 6 Fr xblad guide catheter was inserted over the wire 10:31:18 CHOICE wire advanced. 10:31:53 [place] [facility] [place] IVUS Catheter (37543B) opened to sterile field. 10:31:59 Wire advanced across lesion. 10:32:09 CIRCUMFLEX 10:32:40 IVUS catheter advanced over wire. 10:34:01 Versed 1 mg I.V. was administered by Mae Dutton RN; for sedation; 10:35:20 IVUS pass to Circ lesion performed. 10:35:22 IVUS catheter removed over wire. 10:36:56 Place stent Inflation Number: 1 A GRACE RX 2.5 x 12 stent ([id number]) was prepped and advanced across the Mid CX. The stent was deployed at 13 WAQAS for 0:10 (min:sec). 10:37:26 Stent catheter was removed intact over wire. 10:37:31 Wire redirected to LAD. 10:39:49 IVUS catheter advanced over wire. 10:39:52 IVUS pass to LAD lesion performed. 10:39:54 IVUS catheter removed over wire. 10:40:56 Place stent Inflation Number: 1 A GRACE RX 3.0 x 15 stent ([id number]) was prepped and advanced across the Mid LAD. The stent was deployed at 13 WAQAS for 0:10 (min:sec). 10:42:02 Wire redirected to DIAGONAL. 10:42:52 Stent catheter was removed intact over wire. 10:44:57 Inflate balloon Inflation number: 1 A EUPHORA 2.0 x 12 Balloon ([id number]) was prepped and advanced across the 1st Diag, then inflated to 13 WAQAS for 0:10 (min:sec). 10:45:44 Balloon removed over the wire. 10:45:45 Wire removed. 10:48:06 EXOSEAL 6Fr (EX600) opened to sterile field. 10:48:16 Sheath removed intact; hemostasis achieved with Exoseal to the Left Femoral artery. 10:48:19 Procedure ended.(Physican Out) 10:49:14 Fluoroscopy time 06.40 minutes. 10:49:22 Flurop Dose total: 429 10:49:22 Fluoroscopy dose: 429 mGy 10:49:49 Contrast amount:Isovue 300 120ml. 10:49:59 Sharps counted by scrub and verified by R.N. 10:50:46 Procedure type changed to Cath procedure, Diagnostic procedure, FFR/IVUS, Intra-Coronary IVUS Initial, Intra-Coronary IVUS Additional, PCI procedure, Coronary Stent, Coronary Stent Initial x2, PTCA, PTCA Additional 10:51:04 Patient Height : 60 inches 10:51:25 Patient Weight : 126 lbs 10:55:13 Insertion/operative site no bleeding no hematoma. 10:55:21 Post-op/insertion site Left Femoral artery dressed using a 4 x 4 and Tegaderm. 10:57:07 FEMOSTOP PLACED FOR BACKUP AT 80 10:57:13 Post Procedure Pulses reassessed and unchanged 10:57:21 Post-procedure physical assessment completed. ASA score P 2 - A patient with mild systemic disease as per Rodney Mahoney MD. 10:57:26 Post procedure rhythm: unchanged., sinus rhythm 10:57:31 Estimated blood loss: 10 ml 10:57:44 Patient needs reinforcement of post procedure teaching. 10:57:46 Procedure and supply charges have been captured, reviewed, submitted and are correct. 10:58:12 Vital chart was stopped 10:58:14 See physician's report for complete and final results. 10:58:16 Report given to Pre/Post Procedure Room. 10:58:23 Patient transfered to Pre/Post Procedure Room with Stretcher. 10:58:27 Procedure ended. 10:58:27 Full Disclosure recording stopped 10:58:31 End room use (Document Last) Intervention Summary Intervention Notes Time ActionType Lesion and Equipment Used Action# Pressure Duration Attributes 10:36:56 Place stent Mid CX GRACE RX 2.5 x 1 13 00:10 12 stent ([id number]) 10:40:56 Place stent Mid LAD GRACE RX 3.0 x 1 13 00:10 15 stent ([id number]) 10:44:57 Inflate 1st Diag EUPHORA 2.0 x 1 13 00:10 balloon 12 Balloon ([id number]) Device Usage Item Name Manufacture Quantity Catalog Number Hospital Part Current M inimal Lot# / Charge Number Stock Stock Serial# Code ACIST Syringe Acist 1 79151 305766 342039 671526 2 0 (76641) Medical Systems Inc Bag Decanter Microtek 1 2001S 459457 00119 314299 5 (2001S) Medical Inc. Medline Cath Medline 1 [id number] 120161 82282 038440 5 Pack ([id number]) DIAGNOSTIC St Bigg 1 931234 413003 386794 851372 3 0 WIRE .035 260cm J wire (508978) ACIST Hand Acist 1 62095 892230 550415 232361 5 Control Medical (72015) Systems Inc ACIST Manifold Acist 1 44077 394188 168885 880551 5 (36645) Medical Systems Inc Tegaderm 4 x 4 3M 1 1626W 904656 193747 328776 5 (1626W) CHOICE PT [place] 1 [id number] 954960 386478 385117 5 Extra Support Scientific 182cm wire ([id number]) INFLATOR Merit Merit 1 DF6667 758878 945373 215407 1 5 Celsion (WX0207) GUIDE 6FR Cardinal 1 [id number] 247188 800085 666147 1 0 XBLAD 3.5 Health catheter ([id number]) SHEATH 6FR Terumo 1 WZW961 337466 204089 675853 4 0 [place] (JBB743) [place] 1 05405N 346093 523604 744265 8 [facility] IVUS Catheter (13673B) GRACE RX 2.5 x Medtronic 1 [id number] 284315 1513739 644451 5 [id number] 12 stent ([id number]) GRACE RX 3.0 x Medtronic 1 [id number] 968185 4696205 124057 5 [id number] 15 stent ([id number]) EUPHORA 2.0 x Medtronic 1 [id number] 832406 260389 247515 5 [id number] 12 Balloon ([id number]) EXOSEAL 6Fr Cardinal 1 EX600 682289 495271 900235 1 0 (EX600) Health Signature Audit [place] Stage Time Signature Unsigned Intra-Procedure 10/23/2018 Nash Clayton 11:00:32 AM RT(R) (CV) Signatures Monitor : Nash Clayton RT Signature : Date : Time : [address] [place] [address]
[2018-10-23 09:15] VITALS: BP 149/74; Ht 152.4 cm; Wt 57.3 kg
[2018-10-23 10:02] LABS: BASOPHILS 0.8 % (0-2); EOSINOPHILS 3.3 % (0-7); HEMATOCRIT 32.2 % (36.0-48.0); HEMOGLOBIN 10.8 g/dL (12-16); IMMATURE GRANULOCYTES 0.3 % (0-5); LYMPHOCYTES 34.5 % (15-50); MCHC 33.5 g/dL (31.0-37.0); MCV 89.4 fL (80.0-100.0); MEAN PLATELET VOLUME 10.4 fL (7.4-10.4); MONOCYTES 13.5 % (2-11); NEUTROPHILS 47.6 % (40-80); PLATELET COUNT 169 10x3/uL (130-400); RDW 13.4 % (11.5-14.5); WBC 3.6 10x3/uL (4.8-10.8)
[2018-10-23 10:11] LABS: ANION GAP 15.4 mmol/L (8-16); CARBON DIOXIDE 24.6 mmol/L (21.0-32.0); CREATININE - SERUM 1.1 mg/dL (0.6-1.3)
--- NOTE | 2018-10-23 11:20 | NUR ---
2L NC, NO RESP DISTRESS. LEFT GROIN 6F EXOSEAL CDI, NO BLEEDING OR HEMATOMA NOTED. FEMSTOP IN PLACE @ 75 FOR PRECAUTIONARY MEASURES. NO C/O PAIN OR NAUSEA. VSS. FAMILY AT BEDSIDE, CALL LIGHT WITHIN REAACH.
--- NOTE | 2018-10-23 11:50 | NUR ---
LEFT GROIN 6F EXOSEAL CDI, NO BLEEDING OR HEMATOMA NOTED. FEMSTOP IN PLACE @ 75. NO C/O PAIN OR NAUSEA. VSS. WILL CONTINUE TO MONITOR.
--- NOTE | 2018-10-23 12:16 | NUR ---
FEMSTOP PRESSURE DECREASED BY 15 WITH NO BLEEDING NOTED. VSS. WILL CONTINUE TO MONITOR CLOSELY.
--- NOTE | 2018-10-23 12:35 | NUR ---
FEMSTOP PRESSURE DECREASED BY 15 WITH NO BLEEDING NOTED. VSS. WILL CONTINUE TO MONITOR CLOSELY.
--- NOTE | 2018-10-23 13:00 | NUR ---
FEMSTOP PRESSURE DECREASED BY 20 WITH NO BLEEDING NOTED.
--- NOTE | 2018-10-23 13:23 | NUR ---
REMAINING AIR REMOVED FROM FEMSTOP WITH NO BLEEDING NOTED. FEMSTOP REMOVED FROM SITE. VSS. WILL MONITOR CLOSELY.
--- NOTE | 2018-10-23 14:05 | NUR ---
HOB ELEVATED 30 DEGREES. LEFT GROIN 6F EXOSEAL CDI, NO BLEEDING OR HEMATOMA NOTED. DENIES ANY NEEDS AT THIS TIME. VSS. WILL CONTINUE TO MONITOR CLOSELY.
--- NOTE | 2018-10-23 14:40 | NUR ---
LEFT PIV D/C'D WITH CATHETER INTACT, BAND AID TO SITE. UP TO BEDSIDE TO GET DRESSED. AMBULATED TO RESTROOM.
--- NOTE | 2018-10-23 14:48 | NUR ---
DISCHARGE INSTRUCTIONS GIVEN, VERBALIZED UNDERSTANDING.
--- NOTE | 2018-10-23 15:00 | NUR ---
TAKEN OUT VIA WHEELCHAIR BY CATH DISTRIBUTION SUPERVISOR. LEFT FACILITY WITH FAMILY AND ALL PERSONAL BELONGINGS.
--- NOTE | 2018-10-25 12:11 | OP ---
PATIENT NAME: MICHELL DONOVAN MEDICAL RECORD: [id number] :38 LOCATION:D.CAT ADMISSION DATE: SURGEON: AIDEE GIRON MD DATE OF OPERATION: 10/23/2018 DATE OF SERVICE: 10/23/2018 PROCEDURES: 1. Intravascular ultrasound of the LAD. 2. Intravascular ultrasound of left circumflex. 3. PTCA stent LAD. 4. PTCA stent left circumflex. 5. PTCA LAD diagonal. 6. Selective coronary angiography. INDICATION: Angina and coronary artery disease. DESCRIPTION OF PROCEDURE: After informed consent was obtained and after a detailed description of risks, benefits as well as alternative therapies, the patient elected to proceed with angiogram and angioplasty. The left femoral area was prepped and draped in normal sterile fashion. Left femoral artery was cannulated via modified Seldinger technique with placement of 6-Thai sheath. All catheters exchanged through this sheath. FINDINGS: The left circumflex has a 70% stenosis confirmed by intravascular ultrasound. This was addressed with a 2.5 x 12 mm Sd. Result was 0% residual stenosis. The left anterior descending has greater than 85% stenosis confirmed by intravascular ultrasound. This was addressed with a 3.0 x 15 mm [place]. Result was 0% residual stenosis. This caused plaque shift into the diagonal. The diagonal was addressed with a 2.0 balloon. Result was 0% residual stenosis throughout the LAD and circumflex. OVERALL IMPRESSION: Successful percutaneous transluminal coronary angioplasty stent of the left anterior descending and circumflex, both going from 70-85% initial stenosis to 0% residual. TRANSINT:[id number] Voice Confirmation ID: [id number] DOCUMENT ID: [id number] AIDEE GIRON MD at 1211 CC: [id number] DICTATION DATE: 10/23/18 1054 HEAD SAWYER: 10/23/18 1108 DEP CLI 10/23/18 [place] [address]
--- NOTE | 2018-10-25 12:11 | HP ---
PATIENT: MICHELL DONOVAN MEDICAL RECORD: [id number] ACCOUNT: [id number] LOCATION:EVER : 39 ADMISSION DATE: 10/23/18 PCP: CHATO JIN MD HISTORY AND PHYSICAL EXAMINATION ADMITTING DIAGNOSES: 1. Angina. 2. Coronary artery disease. HISTORY OF PRESENT ILLNESS: Ms. Donovan presents last week with anginal symptomatology, found to have 3-vessel coronary artery disease, underwent successful PTCA stent of the RCA. He is now brought back for PTCA stent of the LAD and circumflex. PHYSICAL EXAMINATION: GENERAL APPEARANCE: Well-nourished, well-developed, appears stated age. Level of distress, comfortable. PSYCHIATRIC: Mental status, alert, normal affect. Orientation, oriented to time, place and person. EYES: Lids and conjunctiva, noninjected. No discharge, no pallor. ENT: Lips, teeth, gums, normal dentition. Oropharynx, no cyanosis, no pallor. NECK: Carotid arteries, bilateral normal upstroke, no bruits, no thrills. JUGULAR VEINS: No jugular venous pressure or distention. CERVICAL LYMPH NODES: Nontender, nonenlarged. THYROID: Not enlarged. Nontender. No nodules. LUNGS: Respiratory effort, unlabored. CHEST: Normal curvature. No thoracic deformity. No chest wall tenderness. Percussion, resonant. Auscultation, clear. No wheezes, no rales, no rhonchi. CARDIOVASCULAR: Precordial exam, nondisplaced. No heaves or pericardial thrills. Rate and rhythm, regular. Heart sounds, normal S1, normal S2. No S3, no gallop, no rub. Systolic murmur, not heard. Diastolic murmur, not heard. EXTREMITIES: No cyanosis, no edema. Peripheral pulses, full and equal in all extremities, except as noted. No bruits appreciated. ABDOMEN: Soft, nondistended. Normal aorta. No bruit. Nontender. No masses. Liver, nontender, no hepatomegaly. Spleen, nontender, no splenomegaly. MUSCULOSKELETAL: No joint tenderness. No joint swelling. No erythema. NEUROLOGICAL: Normal gait, normal strength, normal tone. SKIN: Warm and dry. OVERALL IMPRESSION: Anginal symptomatology with significant disease of the left anterior descending and circumflex. We will proceed with transcatheter revascularization of the left anterior descending and circumflex. TRANSINT:[id number] Voice Confirmation ID: [id number] DOCUMENT ID: [id number] HISTORY AND PHYSICAL [id number] MICHELL DONOVAN, AIDEE EID at 1211 CC: [id number] DICTATION DATE: 10/23/18 1055 CRIMINAL ANALYST: 10/23/18 1110 DEP CLI 10/23/18 [place] [id number] [place] [id number]
== END 2018-10-23 15:00 | disposition home or self-care (01) ==
LOC: D.CATH 08:42
PROVIDERS: Internal Medicine Interventional Cardiology
DX: I25.119 Atherosclerotic heart disease of native coronary artery with unspecified angina pectoris (principal); Z01.812 Encounter for preprocedural laboratory examination
CPT/HCPCS: 92921; 92978; 92979; 93458; C9600 ×2

== ENCOUNTER → 2019-02-11 10:21 | Outpatient (CLI) | payer OTHER ==
[2018-10-23 09:15] VITALS: BMI 24.6
--- NOTE | ~2019-02-11 | ST ---
PATIENT:MICHELL DONOVAN MEDICAL RECORD: [id number] SEX: F LOCATION:[facility] ORDER #: ADMISSION DATE: 02/11/19 AGE OF PATIENT: 78 REFERRING PHYSICIAN: INTERPRETING PHYSICIAN: AIDEE GIRON MD DATE OF SERVICE: 02/11/2019 PROCEDURE: Nuclear stress test. INDICATIONS: Chest pain, coronary artery disease. The patient was exercised on standard Lexiscan protocol with 31 mCi of sestamibi injected at peak stress, 10 mCi used previously for rest images. FINDINGS: Gated SPECT reveals preserved ejection fraction at 63% with good wall motion and thickening and brightening throughout all segments. SPECT imaging Cardiolite was used as myocardial fusion agent. There is homogeneous uptake throughout all segments at rest and stress with no evidence of inducible ischemia or previous infarction. OVERALL IMPRESSION: 1. This is a normal nuclear stress test with no evidence of inducible ischemia or previous infarction. 2. Gated SPECT reveals a preserved ejection fraction at 63%. In this patient with ongoing symptomatology, the current scan does not suggest the presence of hemodynamically significant coronary artery disease. Evaluate noncardiac etiology of chest pain. TRANSINT:[id number] Voice Confirmation ID: [id number] DOCUMENT ID: [id number] AIDEE GIRON MD CC: CHATO JIN MD [id number] DICTATION DATE: 02/12/19 1554 FORGESMITH: 02/13/19 1007 [facility] CLI 02/11/19 [place] [id number] [place] [address]
== END | disposition home or self-care (01) ==
LOC: D.HCCARDIO 10:21
PROVIDERS: ATTEND Internal Medicine Interventional Cardiology
DX: R07.9 Chest pain, unspecified (principal); I25.10 Atherosclerotic heart disease of native coronary artery without angina pectoris

== ENCOUNTER → 2019-04-22 08:15 | Outpatient (CLI) | payer OTHER ==
[2018-10-23 09:15] VITALS: BMI 24.6
[2019-04-26 16:08] LABS: FUNGAL - ASP FLAVUS Negative (Neg:<1:1); FUNGAL - ASP NIGER Negative (Neg:<1:1); FUNGAL - ASPER FUMIGATUS Negative (Neg:<1:1)
== END | disposition home or self-care (01) ==
LOC: D.RT 08:15
PROVIDERS: ATTEND Internal Medicine Pulmonary Disease
DX: R91.1 Solitary pulmonary nodule (principal)

== ENCOUNTER → 2019-11-27 08:37 | Outpatient (CLI) | payer OTHER ==
[2018-10-23 09:15] VITALS: BMI 24.6
== END | disposition home or self-care (01) ==
LOC: D.RT 08:37
PROVIDERS: ATTEND Internal Medicine Pulmonary Disease
DX: R06.02 Shortness of breath (principal)

== ENCOUNTER → 2019-12-01 10:05 | Outpatient (CLI) | payer OTHER ==
[2018-10-23 09:15] VITALS: BMI 24.6
== END | disposition home or self-care (01) ==
LOC: D.CT 10:05
PROVIDERS: ATTEND Internal Medicine Pulmonary Disease
DX: R91.1 Solitary pulmonary nodule (principal)

== ENCOUNTER 2020-03-15 08:00 | Outpatient (CLI) | payer OTHER, MEDICAID ==
[2018-10-23 09:15] VITALS: BMI 24.6
== END 2020-03-15 08:01 | disposition home or self-care (01) ==
LOC: D.MAMMO 08:00
PROVIDERS: ATTEND Nurse Practitioner Family
DX: N63.25 Unspecified lump in the left breast, overlapping quadrants (principal)

== ENCOUNTER → 2021-02-11 09:50 | Outpatient (CLI) | payer MEDICARE, MEDICAID ==
[2018-10-23 09:15] VITALS: BMI 24.6
== END | disposition home or self-care (01) ==
LOC: D.MRI 09:50
PROVIDERS: ATTEND Clinical Nurse Specialist Family Health
DX: R22.31 Localized swelling, mass and lump, right upper limb (principal)